=== PATIENT | female | born 1960 | race Caucasian/White ===

== ENCOUNTER 2019-02-04 02:07 | Emergency (ER) | payer MEDICARE ==
[~2019-02-04] VITALS: Ht 165.1 cm; Wt 101.0 kg
[~2019-02-04 02:07] MED LIST: CEPH-368 PO; SULF1TAB24 PO
[2019-02-04 02:13] VITALS: BP 121/85
== END 2019-02-04 03:16 | disposition home or self-care (01) ==
LOC: ED 03:10
DX: S80.862A Insect bite (nonvenomous), left lower leg, initial encounter (principal); S80.861A Insect bite (nonvenomous), right lower leg, initial encounter; W57.XXXA Bitten or stung by nonvenomous insect and other nonvenomous arthropods, initial encounter; Y93.89 Activity, other specified; Y92.89 Other specified places as the place of occurrence of the external cause; Y99.8 Other external cause status
CPT/HCPCS: 99283

== ENCOUNTER 2019-02-12 20:40 | Emergency (ER) | payer MEDICARE, MEDICAID ==
[~2019-02-12] VITALS: Ht 165.1 cm; Wt 100.0 kg
[2019-02-12 20:42] VITALS: BP 137/88
== END 2019-02-12 21:19 | disposition home or self-care (01) ==
LOC: ED 20:55
DX: S80.861A Insect bite (nonvenomous), right lower leg, initial encounter (principal); S80.862A Insect bite (nonvenomous), left lower leg, initial encounter; M19.90 Unspecified osteoarthritis, unspecified site; Z72.9 Problem related to lifestyle, unspecified; Z63.8 Other specified problems related to primary support group; Z75.9 Unspecified problem related to medical facilities and other health care; W57.XXXA Bitten or stung by nonvenomous insect and other nonvenomous arthropods, initial encounter; Y93.89 Activity, other specified; Y92.89 Other specified places as the place of occurrence of the external cause; Y99.8 Other external cause status
CPT/HCPCS: 99283

== ENCOUNTER 2021-03-31 11:33 | Emergency (ER) | payer MEDICARE, MEDICAID ==
[~2021-03-31] VITALS: Ht 165.1 cm; Wt 108.2 kg
[~2021-03-31 11:33] MED LIST changes: +SULF-23 PO; -SULF1TAB24 PO
[2021-03-31 11:40] VITALS: BP 124/85
== END 2021-03-31 12:39 | disposition home or self-care (01) ==
LOC: ED 12:20
DX: B86 Scabies (principal); M19.90 Unspecified osteoarthritis, unspecified site
CPT/HCPCS: 99283

== ENCOUNTER 2021-04-02 15:36 | Emergency (ER) | payer MEDICARE, MEDICAID ==
[~2021-04-02] VITALS: Ht 165.1 cm; Wt 103.8 kg
[2021-04-02 15:40] VITALS: BP 135/88
--- NOTE | 2021-04-02 15:46 | NUR ---
Marilu chowdhury in [facility] - 04/02/21 at 1547 by ALEJA managed care director: attempted to move patient from lobby to room, no answer in lobby
[2021-04-02] MEDS ORDERED: DIPHENHYDRAMINE 25 MG CAPSULE ONE (15:58)
[2021-04-02] MEDS ORDERED: DIPHENHYDRAMINE 25 MG CAPSULE PO ONE (16:00)
--- NOTE | 2021-04-02 16:00 | NUR ---
PT AMBULATORY TO ROOM 8 W/ C/O R TO L OUTER THIGH. PT STATES HE WAS SEEN HERE YESTERDAY FOR SAME W/O IMPROVEMENT TODAY. PT RESTING ON ANSELMO. DOLLY. MEDICATED PER NOV.
== END 2021-04-02 17:04 | disposition home or self-care (01) ==
LOC: ED 16:58
DX: B86 Scabies (principal); M19.90 Unspecified osteoarthritis, unspecified site
CPT/HCPCS: 99283; Q0163

== ENCOUNTER 2021-04-15 08:57 | Emergency (ER) | payer MEDICARE, MEDICAID ==
[~2021-04-15] VITALS: Ht 165.1 cm; Wt 104.5 kg
[2021-04-15 09:20] VITALS: BP 139/97
--- NOTE | 2021-04-15 10:21 | NUR ---
PT ELOPED AFTER YELLING AT STAFF & KRISH LAMAR DEMANDING TO BE TAKEN THROUGH TRIAGE THEN BACK TO A ROOM DESPITE C/O PERSISTENT SCABIES, PT REFUSED TO BE SEEN IN [place].
--- NOTE | 2021-04-15 10:22 | NUR ---
Patient/Caregiver given discharge instructions and they have confirmed that they understand the instructions. Patient ambulatory with steady gait. NAD, all questions answered appropriately, denies additional needs at this time. No personal belongings left in room after discharge. Addendum: 04/15/21 at 1023 by LUDWIN DEE DEE WEST
== END 2021-04-15 10:24 | disposition left against medical advice (07) ==
LOC: ED 10:07
DX: B86 Scabies (principal); Z90.49 Acquired absence of other specified parts of digestive tract
CPT/HCPCS: 99281

== ENCOUNTER 2021-04-19 11:13 | Emergency (ER) | payer MEDICARE, MEDICAID ==
[~2021-04-19] VITALS: Ht 165.1 cm; Wt 106.1 kg
[2021-04-19 11:27] VITALS: BP 136/80
== END 2021-04-19 12:03 | disposition home or self-care (01) ==
LOC: ED 11:20
DX: B86 Scabies (principal); M19.90 Unspecified osteoarthritis, unspecified site
CPT/HCPCS: 99283

== ENCOUNTER 2021-06-13 18:16 | Emergency (ER) | payer MEDICAID, MEDICARE ==
[~2021-06-13] VITALS: Ht 165.1 cm; Wt 105.8 kg
[2021-06-13 18:34] VITALS: BP 140/89
== END 2021-06-13 21:22 | disposition home or self-care (01) ==
LOC: ED 18:35
DX: B86 Scabies (principal); M19.90 Unspecified osteoarthritis, unspecified site
CPT/HCPCS: 99283